=== PATIENT | male | born 1975 | race Caucasian/White ===

== ENCOUNTER 2021-12-31 14:50 | Outpatient (CLI) | payer OTHER | END 2021-12-31 14:51 | disposition home or self-care (01) | LOC: DTY/OP 14:50 | PROVIDERS: ATTEND Specialist | DX: E66.01 Morbid (severe) obesity due to excess calories (principal); Z71.3 Dietary counseling and surveillance | CPT/HCPCS: 97802 ==

== ENCOUNTER 2022-04-07 08:57 | Day surgery (SDC) | payer MEDICARE, OTHER ==
[2022-04-06 14:42] VITALS: BMI 45.4
[2022-04-07] MEDS ORDERED: fentaNYL Citrate/PF 100 MCG/2 ML SYRINGE ONE (10:00)
[2022-04-07] MEDS ORDERED: Ketamine 50 MG/ML (10ML VIAL) ONE (10:00)
[2022-04-07] MEDS ORDERED: PROPOFOL 200 MG/20 ML VIAL ONE (12:09)
== END 2022-04-07 13:15 | disposition home or self-care (01) ==
LOC: SDC 08:57
PROVIDERS: ATTEND Internal Medicine Gastroenterology
PROC: 0DB78ZX Excision of Stomach, Pylorus, Via Natural or Artificial Opening Endoscopic, Diagnostic (ICD-10-PCS; principal; 2022-04-07)
DX: K31.89 Other diseases of stomach and duodenum (principal); K21.9 Gastro-esophageal reflux disease without esophagitis; M19.90 Unspecified osteoarthritis, unspecified site; G80.9 Cerebral palsy, unspecified; I10 Essential (primary) hypertension; E78.00 Pure hypercholesterolemia, unspecified; G47.30 Sleep apnea, unspecified; Z79.899 Other long term (current) drug therapy
CPT/HCPCS: 88305; 88342; J2704